=== PATIENT | female | born 1985 | race Caucasian/White ===

== ENCOUNTER 2019-01-31 19:29 | Emergency (ER) | payer OTHER ==
[2019-01-31] MEDS ORDERED: TETRACAINE HCL 0.5% OPH SOLN 4 ML OD ONE (20:18)
[2019-01-31] MEDS ORDERED: CIPROFLOXACIN-HC OTIC SUSP 10 ML AD ONE (20:53)
[2019-01-31] MEDS ORDERED: CIPROFLOXACIN-HC OTIC SUSP 10 ML ONE (21:24)
[2019-01-31] MEDS ORDERED: CIPROFLOXACIN HCL 0.3% OPH SOLN 2.5 ML OD ONE (21:37)
[2019-01-31 21:48] VITALS: BP 122/80
--- NOTE | 2019-01-31 21:58 | ER Document Report ---
Entered by RONAL SHELBY SCRIBE 01/31/192024 Acting as scribe for:JIMENA MACEDO DO ED Eye Complaint - General Chief Complaint: Eye Pain Stated Complaint: EYE PAIN Time Seen by Provider: 01/31/19 20:13 Primary Care Provider: OMERO GUTIERREZ MD [ACTIVE STAFF] - Follow up in 3-5 days Mode of Arrival: Ambulatory Information source: Patient Notes: Patient is a 33 year old female presenting to the emergency department complaining of right eye pain onset 6 days ago. Patient states she recently had sinus pressure, congestion and swelling around her right eye and presented to [facility] where she was discharged home with a prescription for Zpak and Flonase after asking for antibiotics. Patient states the swelling has gone down since taking the Zpak although she still has right eye pain. She describes her pain as a waxing and waning pressure of her eye and the muscles behind her eye that is exacerbated with movement. She also states she has blurred vision in her right eye described as "forgetting to put my contact in that eye". She denies any injury to her right eye or fevers. TRAVEL OUTSIDE OF THE [place] IN LAST 30 DAYS: No - Related Data Allergies/Adverse Reactions: No Known Allergies Allergy (Unverified 01/31/19 19:38) Past Medical History - General Information source: Patient - Social History Smoking Status: Never Smoker Frequency of alcohol use: None Drug Abuse: None Family History: Reviewed & Not Pertinent Patient has suicidal ideation: No Patient has homicidal ideation: No Review of Systems - Review of Systems Constitutional: No symptoms reported EENT: See HPI Cardiovascular: No symptoms reported Respiratory: No symptoms reported Gastrointestinal: No symptoms reported Genitourinary: No symptoms reported Female Genitourinary: No symptoms reported Musculoskeletal: No symptoms reported Skin: No symptoms reported Hematologic/Lymphatic: No symptoms reported Neurological/Psychological: No symptoms reported -: Yes All other systems reviewed and negative Physical Exam - Vital signs Vitals: Temp Pulse Resp BP Pulse Ox 98.6 F 96 18 127/75 H 98 01/31/19 19:34 01/31/19 19:34 01/31/19 19:34 01/31/19 19:34 01/31/19 19:34 - Notes Notes: GENERAL: Alert, interacts well. No acute distress. HEAD: Normocephalic, atraumatic. EYES: Pupils equal, round, and reactive to light. Extraocular movements intact. Right conjunctival injection. No abrasion or ulcer visualized on the right eye. There is a hazy area over the lateral aspect of right eye, somewhat raised and stippled, does not uptake fluorescein. No pain with extraocular movements. All pain resolves after application of tetracaine drops. No exophthalmos. ENT: Oral mucosa moist, tongue midline. NECK: Full range of motion. Supple. Trachea midline. LUNGS: No respiratory distress. EXTREMITIES: Moves all 4 extremities spontaneously. NEUROLOGICAL: Alert and oriented x3. Normal speech. PSYCH: Normal affect, normal mood. SKIN: Warm, dry, normal turgor. Course - Re-evaluation Re-evalutation: 01/31/19 20:57 All pain resolved with application of tetracaine drops, slightly raised stable area on the surface of her eye will be treated in the same manner as a corneal abrasion with ciprofloxacin eyedrops. No evidence of any ulceration, no evidence of hypopyon. This does go across both the pupil and the iris. No evidence of orbital or periorbital cellulitis. Discharged to home. - Vital Signs Vital signs: Temp Pulse Resp BP Pulse Ox 98.7 F 81 16 122/80 97 01/31/19 21:47 01/31/19 21:47 01/31/19 21:47 01/31/19 21:47 01/31/19 21:47 Discharge - Discharge Clinical Impression: Corneal inflammation, right Condition: Stable Disposition: HOME, SELF-CARE Additional Instructions: Corneal Abrasion You have a corneal abrasion, a scratch on the surface of the eye. The pain of a corneal abrasion feels like a sharp particle in the eye. Usually, antibiotics are placed in the eye to prevent infection. Occasionally, medication will be placed in the eye to dilate the pupil. This is done to relieve some of your discomfort and is only temporary. Pain medication may be required. Don't drive or operate machinery until you have the use of both your eyes. The abrasion usually is healed in one or two days. A follow-up examination to confirm healing is recommended. Call the doctor or return at once if you develop severe pain, decreasing vision, eye swelling, or purulent drainage. Apply the ciprofloxacin eyedrops 1 drop every 6 hours for 5 days. Referrals: OMERO GUTIERREZ MD [ACTIVE STAFF] - Follow up in 3-5 days I personally performed the services described in the documentation, reviewed and edited the documentation which was dictated to the scribe in my presence, and it accurately records my words and actions.
== END 2019-01-31 21:48 | disposition home or self-care (01) ==
LOC: ER 19:29
DX: H16.9 Unspecified keratitis (principal); H57.11 Ocular pain, right eye
CPT/HCPCS: 99283; J3490 ×3